=== PATIENT | male | born 1960 | race Caucasian/White ===

== ENCOUNTER 2021-05-28 10:19 | Day surgery (SDC) | payer BC, OTHER ==
[2021-05-27 12:08] VITALS: BMI 18.8
[2021-05-28] MEDS ORDERED: AFRIN NASAL MIST 15 ML BOT ONE (10:36)
[2021-05-28] MEDS ORDERED: Lidocaine 1% w/Epinephrine 1:100K 20 ML VIAL ONE (11:48)
[2021-05-28] MEDS ORDERED: Midazolam HCl 2 mg/2 ml Vial ONE (11:57)
[2021-05-28] MEDS ORDERED: Fentanyl 100 MCG/2 ML VIAL ONE ×3 (11:57→13:46)
[2021-05-28] MEDS ORDERED: PROPOFOL 200 MG/20 ML VIAL ONE (12:27)
[2021-05-28] MEDS ORDERED: Rocuronium Bromide 10 MG/ML (10ML VIAL) ONE (12:27)
[2021-05-28] MEDS ORDERED: Ondansetron PF 4 MG/2 ML Vial ONE ×2 (12:27→14:55)
[2021-05-28] MEDS ORDERED: Dexamethasone 20 MG/5 ML VIAL ONE (12:27)
[2021-05-28] MEDS ORDERED: Lidocaine 1% PF 5 ML VIAL ONE (12:27)
[2021-05-28] MEDS ORDERED: PHENYLEPHRINE-NS 100 MCG/ML 10 ML SYRINGE ONE (12:27)
[2021-05-28] MEDS ORDERED: Glycopyrrolate 0.2 MG/ML 5 ML SYRINGE ONE (12:27)
[2021-05-28] MEDS ORDERED: HYDROcodone/Acetaminophen 5/325 mg Tablet ONE (14:53)
== END 2021-05-28 16:18 | disposition home or self-care (01) ==
LOC: SDC 10:19
PROVIDERS: ATTEND Otolaryngology Plastic Surgery within the Head & Neck
PROC: 099S8ZZ Drainage of Right Frontal Sinus, Via Natural or Artificial Opening Endoscopic (ICD-10-PCS; principal; 2021-05-28)
PROC: 09SM0ZZ Reposition Nasal Septum, Open Approach (ICD-10-PCS; principal; 2021-05-28)
PROC: 09TU8ZZ Resection of Right Ethmoid Sinus, Via Natural or Artificial Opening Endoscopic (ICD-10-PCS; principal; 2021-05-28)
PROC: 099Q8ZZ Drainage of Right Maxillary Sinus, Via Natural or Artificial Opening Endoscopic (ICD-10-PCS; principal; 2021-05-28)
PROC: 099T8ZZ Drainage of Left Frontal Sinus, Via Natural or Artificial Opening Endoscopic (ICD-10-PCS; principal; 2021-05-28)
PROC: 099R8ZZ Drainage of Left Maxillary Sinus, Via Natural or Artificial Opening Endoscopic (ICD-10-PCS; principal; 2021-05-28)
PROC: 09TL0ZZ Resection of Nasal Turbinate, Open Approach (ICD-10-PCS; principal; 2021-05-28)
PROC: 09TV8ZZ Resection of Left Ethmoid Sinus, Via Natural or Artificial Opening Endoscopic (ICD-10-PCS; principal; 2021-05-28)
DX: J32.9 Chronic sinusitis, unspecified (principal); J34.2 Deviated nasal septum; J34.3 Hypertrophy of nasal turbinates; M95.0 Acquired deformity of nose; J34.89 Other specified disorders of nose and nasal sinuses; J30.9 Allergic rhinitis, unspecified; H90.5 Unspecified sensorineural hearing loss; H69.80 Other specified disorders of Eustachian tube, unspecified ear; I10 Essential (primary) hypertension; E78.5 Hyperlipidemia, unspecified; F17.200 Nicotine dependence, unspecified, uncomplicated; Z79.899 Other long term (current) drug therapy
CPT/HCPCS: 93005; 93010; J1100; J2250; J2405; J2704; J3010